=== PATIENT | female | born 1990 | race Caucasian/White ===

== ENCOUNTER 2018-02-26 12:39 | Outpatient (CLI) | payer OTHER | END 2018-02-26 12:54 | disposition home or self-care (01) | LOC: LAB 12:39 | DX: J11.1 Influenza due to unidentified influenza virus with other respiratory manifestations (principal); J06.9 Acute upper respiratory infection, unspecified ==

== ENCOUNTER 2022-12-19 09:20 | Emergency (ER) | payer OTHER ==
[~2022-12-19] VITALS: Ht 152.4 cm; Wt 42.2 kg
[2022-12-19 10:53] LABS: HEMATOCRIT 41.3 % (36.0-45.00); HEMOGLOBIN 13.3 g/dL (12.0-15.00); MEAN CELL VOLUME 83.3 fL (80.00-100.00); MEAN CORPUSCULAR HEMOGLOBIN 26.9 pg (27.00-32.0); MEAN CORPUSCULAR HGB CONC 32.2 g/dl (32.0-36.0); PLATELET COUNT 289 K/uL (150-450); RED BLOOD COUNT 4.95 M/uL (4.00-6.00)
[2022-12-19 11:17] LABS: CALCIUM 9.3 mg/dL (8.5-10.1); CREATININE SERUM 0.84 mg/dL (0.55-1.02); GFR 79.08; POTASSIUM 3.67 mEq/L (3.5-5.1)
== END 2022-12-19 12:06 | disposition home or self-care (01) ==
LOC: ER 09:20
PROVIDERS: General Practice
DX: N94.6 Dysmenorrhea, unspecified (principal)